=== PATIENT | female | born 1970 | race Caucasian/White ===

== ENCOUNTER 2022-05-10 09:36 | Emergency (ER) | payer MEDICAID ==
[~2022-05-10 09:36] MED LIST: MEDROL 4MG DOSEP4 MG PO; ROBAXIN500 MG PO; VENTOLIN HFA IN18 GM INH
[2022-05-10 11:08] LABS: BASOPHIL 0.9 % (0-2); EOSINOPHIL 1.7 % (0-5); HCT 40.4 % (37.0-47.0); HGB 12.4 g/dl (12.5-16.0); LYMPHOCYTE 20.6 % (15-48); MCH 23.8 pg (25.0-31.0); MCHC 30.7 g/dL (32.0-36.0); MCV 77.7 fL (78.0-100.0); MPV 10.3 fL (6.0-9.5); NEUTROPHIL 67.4 % (41-80); NRBC 0; PLT 334 K/uL (150-400); RDW 14.5 % (11.5-14.0)
[2022-05-10 12:01] LABS: ALBUMIN 3.2 g/dL (3.4-5.0); ALKALINE PHOSHATASE 114 U/L (46-116); ALT 27 U/L (14-59); AST 16 U/L (15-37); BILIRUBIN - TOTAL 0.6 mg/dL (0.2-1.0); BUN 8 mg/dL (7-18); BUN/CREAT RATIO (CALC) 12.3 RATIO; CHLORIDE 96 mmol/L (98-107); CO2 (BICARBONATE) 26 mmol/L (21-32); CREATININE 0.65 mg/dL (0.51-0.95); GLOBULIN (CALCULATION) 3.6 g/dL; GLUCOSE 439 mg/dL (74-106); POTASSIUM 4.1 mmol/L (3.5-5.1); TOTAL PROTEIN 6.8 g/dL (6.4-8.2)
[2022-05-10 15:17] LABS: INR 0.98 (0.9-1.2); PROTHROMBIN TIME 12.4 SECONDS (11.8-13.4)
[2022-05-10 15:18] LABS: PTT 33.7 SECONDS (24.4-34.7)
[2022-05-10] MEDS ORDERED: PEPCID AC20 MG PO (16:32)
== END 2022-05-10 16:43 | disposition home or self-care (01) ==
LOC: FER 09:36
PROVIDERS: Emergency Medicine
DX: I26.99 Other pulmonary embolism without acute cor pulmonale (principal); K29.70 Gastritis, unspecified, without bleeding; R73.9 Hyperglycemia, unspecified; R16.1 Splenomegaly, not elsewhere classified; Z88.5 Allergy status to narcotic agent; Z91.011 Allergy to milk products; Z87.891 Personal history of nicotine dependence
CPT/HCPCS: 36415; 70450; 71045; 71275; 80053; 83880; 84484; 85025; 85379; 85610; 85730; Q9967

== ENCOUNTER 2022-05-11 23:43 | Inpatient (IN) | payer MEDICAID ==
[~2022-05-11] VITALS: Ht 167.6 cm; Wt 109.8 kg
[~2022-05-11 23:43] MED LIST changes: +PEPCID AC20 MG PO
[2022-05-12 01:40] LABS: EOSINOPHIL 1.7 % (0-5); HCT 37.5 % (37.0-47.0); HGB 11.4 g/dl (12.5-16.0); LYMPHOCYTE 25.5 % (15-48); MCH 23.5 pg (25.0-31.0); MCHC 30.4 g/dL (32.0-36.0); MCV 77.2 fL (78.0-100.0); MPV 10.7 fL (6.0-9.5); NEUTROPHIL 62.1 % (41-80); NRBC 0; PLT 412 K/uL (150-400); RBC 4.86 M/uL (4.20-5.40); RDW 14.6 % (11.5-14.0); WBC 10.5 K/uL (4.0-10.5)
[2022-05-12 01:47] LABS: BUN/CREAT RATIO (CALC) 13.3 RATIO; CREATININE 0.9 mg/dL (0.51-0.95); POTASSIUM 4.2 mmol/L (3.5-5.1)
[2022-05-12 04:04] LABS: HCT 27.8 % (37.0-47.0); HGB 8.4 g/dL (12.5-16.0)
[2022-05-12 06:08] LABS: HCT 28.2 % (37.0-47.0); HGB 8.6 g/dL (12.5-16.0)
[2022-05-12 12:09] LABS: BASOPHIL 0.6 % (0-2); BUN/CREAT RATIO (CALC) 17.6 RATIO; CREATININE 0.74 mg/dL (0.51-0.95); EOSINOPHIL 0.8 % (0-5); HCT 29.4 % (37.0-47.0); LYMPHOCYTE 21.3 % (15-48); MCH 24.1 pg (25.0-31.0); MCHC 30.6 g/dL (32.0-36.0); MCV 78.8 fL (78.0-100.0); MONOCYTE 6.8 % (0-12); MPV 10.5 fL (6.0-9.5); NEUTROPHIL 69.8 % (41-80); NRBC 0; PLT 357 K/uL (150-400); RBC 3.73 M/uL (4.20-5.40); RDW 14.6 % (11.5-14.0); WBC 10.7 K/uL (4.0-10.5)
[2022-05-12 13:06] LABS: INR 1.45 (0.9-1.2); PROTHROMBIN TIME 17.2 SECONDS (11.9-13.9)
[2022-05-12 13:07] LABS: PTT 33.5 SECONDS (24.9-34.6)
--- NOTE | 2022-05-12 13:18 | NUR ---
PATIENT RECEIVED FRO ER VIA STRETCHER AMBULATED TO BED, ORIENTED TO ROOM AND UNIT
[2022-05-12 18:50] LABS: HGB 8.3 g/dL (12.5-16.0)
--- NOTE | 2022-05-12 19:54 | NUR ---
REPORT GIVEN TO CAITIE NAVA, PATIENT TO BE TRANSFERRED TO [facility]– [place]
[2022-05-12 23:31] LABS: BILIRUBIN NEGATIVE (NEGATIVE); BLOOD 3+ Ery/uL (NEGATIVE); CLARITY CLEAR (CLEAR); COLOR YELLOW (YELLOW); GLUCOSE (U) 3+ mg/dL (NORMAL); LEUKOCYTES NEGATIVE Leu/uL (NEGATIVE); NITRITE NEGATIVE (NEGATIVE); PROTEIN NEGATIVE (NEGATIVE); SPECIFIC GRAVITY <=1.005 (1.001-1.030); UROBILINOGEN 0.2 mg/dL (0.2-1.0)
[2022-05-12 23:40] LABS: SQUAMOUS EPITHELIAL CELLS RARE; URINARY WBC RARE
[2022-05-13 01:10] LABS: HGB 8.3 g/dL (12.5-16.0)
[2022-05-13] MEDS ORDERED: PROVERA10 MG PO (07:41)
[2022-05-13 07:46] LABS: BASOPHIL 0.8 % (0-2); EOSINOPHIL 3.2 % (0-5); HCT 27.6 % (37.0-47.0); HGB 8.2 g/dl (12.5-16.0); LYMPHOCYTE 30.7 % (15-48); MCH 23.6 pg (25.0-31.0); MCHC 29.7 g/dL (32.0-36.0); MCV 79.3 fL (78.0-100.0); MONOCYTE 6.6 % (0-12); MPV 9.9 fL (6.0-9.5); NEUTROPHIL 57.7 % (41-80); NRBC 0; PLT 329 K/uL (150-400); RBC 3.48 M/uL (4.20-5.40); WBC 7.9 K/uL (4.0-10.5)
[2022-05-13 08:04] LABS: BUN/CREAT RATIO (CALC) 10.9 RATIO; CREATININE 0.55 mg/dL (0.51-0.95); POTASSIUM 3.5 mmol/L (3.5-5.1)
--- NOTE | 2022-05-13 09:01 | NUR ---
PT SEEN BY DR DAY THIS AM. PLAN IS TO START MEDROXYPROGESTERONE 20MG TID, NAPROXEN 250MG BID X 7DAYS, A F/U CBC 05/14/22 AND A F/U APPOINTMENT WITH [facility] FOR BIOPSY AND SURGICAL MANGANGEMENT.
[2022-05-13 09:32] LABS: IRON % SATURATION 3.6 %SAT (20-50)
[2022-05-13] MEDS ORDERED: GLUCOTROL XL5 MG PO (10:52)
[2022-05-13] MEDS ORDERED: POLY-IRON150 MG PO (10:52)
== END 2022-05-13 12:25 | disposition home or self-care (01) | DRG 813 ==
LOC: FER 23:43 → FICU 05-12 10:21
PROVIDERS: Emergency Medicine; Internal Medicine; ADMIT Internal Medicine
DX: D68.32 Hemorrhagic disorder due to extrinsic circulating anticoagulants (principal); I26.99 Other pulmonary embolism without acute cor pulmonale; E11.65 Type 2 diabetes mellitus with hyperglycemia; N93.9 Abnormal uterine and vaginal bleeding, unspecified; D25.9 Leiomyoma of uterus, unspecified; D50.9 Iron deficiency anemia, unspecified; K80.20 Calculus of gallbladder without cholecystitis without obstruction; F41.9 Anxiety disorder, unspecified; F32.A Depression, unspecified; T45.515A Adverse effect of anticoagulants, initial encounter; Z79.01 Long term (current) use of anticoagulants; Z88.5 Allergy status to narcotic agent; Z98.51 Tubal ligation status; Z83.3 Family history of diabetes mellitus; Z82.49 Family history of ischemic heart disease and other diseases of the circulatory system; Z87.891 Personal history of nicotine dependence; Z80.41 Family history of malignant neoplasm of ovary
CPT/HCPCS: 36415; 76705; 76857; 80048; 81001; 82009; 82607; 82962; 83036; 83540; 83550; 83605; 84145; 85014; 85018; 85025; 85610; 85730; 86850; 86900; 86901; 87040; 93005; 94010; J1644; J2543; J7030; Q9967